=== PATIENT | female | born 1995 | race Caucasian/White ===

== ENCOUNTER 2016-12-30 07:38 | Day surgery (SDC) | payer BC, SELFPAY ==
[2016-12-30] MEDS ORDERED: Lactated Ringers 1,000 ML IV SCH (07:45)
[2016-12-30] MEDS ORDERED: Sodium Chloride 0.9% 10 ML Syringe FLUSH PRN (07:45)
[2016-12-30] MEDS ORDERED: Ketamine 500 mg/10 ML MDV IV ONE (09:00)
[2016-12-30] MEDS ORDERED: Ondansetron 4 MG/2 ML SDV IVPUSH ONE (09:00)
[2016-12-30] MEDS ORDERED: Propofol 200 MG/20 ML SDV IV ONE (09:00)
[2016-12-30] MEDS ORDERED: ceFAZolin 2 GM in Premix Bag 1 BAG IV ONE (09:00)
[2016-12-30] MEDS ORDERED: Midazolam 1 MG/ML 2 ML SDV IV ONE (09:00)
[2016-12-30] MEDS ORDERED: fentaNYL 100 MCG/2 ML SDV IV ONE (09:00)
[2016-12-30] MEDS ORDERED: Dexamethasone 4 MG/ML 5 ML MDV IVPUSH ONE (09:00)
[2016-12-30] MEDS ORDERED: Lidocaine 1% with EPINEPHrine 1:100,000 20 ML MDV INJECT ONE (09:20)
[2016-12-30] MEDS ORDERED: Bupivacaine 0.5% 30 ML SDV INJECT ONE (09:20)
--- NOTE | 2016-12-30 09:48 | PCM.OPNOTE ---
- General Post-Op/Procedure Note Date of Surgery/Procedure: 12/30/16 Operative Procedure(s): excision of cyst from right medial ankle Findings: 3 cm cyst with contents Pre Op Diagnosis: ankle cyst Post-Op Diagnosis: Same Anesthesia Technique: Local (7 ml 1 % lido with epi/0.5% buvipicaine), MAC Primary Surgeon: Gary Rolle Anesthesia Provider: Cali Encinas Pathology: cyst and contents Complications: None Condition: Good Free Text/Narrative:: see dictation
[2016-12-30] MEDS ORDERED: Acetaminophen/HYDROcodone 325-5 MG Tab PO ONE (10:39)
[2016-12-30 11:29] VITALS: BP 133/62
--- NOTE | 2016-12-30 16:25 | OR ---
DATE OF OPERATION: 12/30/2016 SURGEON: Gary Rolle MD PROCEDURE PERFORMED: Excisional biopsy of cystic lesion, right medial ankle. PREOPERATIVE DIAGNOSIS: Cyst of the right ankle. POSTOPERATIVE DIAGNOSIS: Cyst of the right ankle. INDICATIONS FOR PROCEDURE: This is a 21-year-old white female who is referred with a complaint of a lesion in the medial aspect of her ankle over the malleolus, as it grows in size. It is quite tender. She was offered and accepted excision. DESCRIPTION OF OPERATION: After an excellent IV sedation was administered, the area was prepped and draped in the usual sterile manner. A total of approximately 6 mL of a 1:1 mixture of 1% lidocaine with epinephrine and 0.5% bupivacaine were used to infiltrate our area. An incision was made, and the cyst wall was encountered just below the skin itself. We entered the cyst and I did dissection as it measured 3 cm in diameter, and we came around circumferentially and essentially carefully dissected the cyst from the surrounding structures. The specimen was passed off the field and sent for permanent. The area was irrigated. The wound was closed with vertical mattress sutures. Dressing was applied. Needle, sponge, and instrument counts were reported as correct. The patient was taken to recovery room in good condition. /[id number] /MODL
== END 2016-12-30 11:19 | disposition home or self-care (01) ==
LOC: FB.SDS 07:38
PROVIDERS: ATTEND Surgery
DX: M67.471 Ganglion, right ankle and foot (principal); F41.9 Anxiety disorder, unspecified; E55.9 Vitamin D deficiency, unspecified; Z88.8 Allergy status to other drugs, medicaments and biological substances; Z79.899 Other long term (current) drug therapy
CPT/HCPCS: 27630; 81025; 88304; A9270; J0690; J1100; J2250; J2405; J2704; J3010; J7120